=== PATIENT | male | born 1950 | race Caucasian/White ===

== ENCOUNTER → 2017-01-01 | Outpatient (CLI) | payer MEDICARE, OTHER ==
[~2017-01-01] MED LIST: ALBUAER3 INH; ASPI81CH37 CHEW; CARV12.5 PO; CLON0.5T PO; CLOP75TA PO; ERYTOIN10 EACH EYE; FENO2.5C PO; LISI-519 PO; NITR0.4S SL; NUVI150T2 PO; ROSU10 PO; SERT-129 PO; SYMB80AE INH; TEMA30CA PO
[2017-01-01 13:27] LABS: AUTOMATED NEUTROPHIL # 3.4 TH/MM3 (1.8-7.7); BASOPHIL % 0.7 % (0.0-2.0); EOSINOPHIL # 0.2 TH/MM3 (0-0.4); EOSINOPHIL % 3.9 % (0.0-4.0); HEMO FLAGS DIFF FINAL; LYMPH % 26.3 % (9.0-44.0); LYMPHOCYTE # 1.5 TH/MM3 (1.0-4.8); MEAN CELL VOLUME 91.1 FL (80.0-100.0); MEAN CORPUSCULAR HEMOGLOBIN 30.9 PG (27.0-34.0); MEAN CORPUSCULAR HGB CONC 33.9 % (32.0-36.0); MONO % 8.6 % (0.0-8.0); NEUT % 60.5 % (16.0-70.0); PLATELET COUNT 228 TH/MM3 (150-450); RED BLOOD COUNT 4.61 MIL/MM3 (4.50-5.90); RED CELL DISTRIBUTION WIDTH 14.1 % (11.6-17.2); WHITE BLOOD COUNT 5.6 TH/MM3 (4.0-11.0)
[2017-01-01 13:30] LABS: ALT (GPT) 32 U/L (12-78); ANION GAP 8 MEQ/L (5-15); BLOOD UREA NITROGEN 22 MG/DL (7-18); CHLORIDE 108 MEQ/L (98-107); GLOMERULAR FILTRATION RATE 64 ML/MIN (>89); GLUCOSE,FASTING 87 MG/DL (74-99); POTASSIUM 4.9 MEQ/L (3.5-5.1); SODIUM (NA) 146 MEQ/L (136-145)
[2017-01-01 13:43] LABS: ALKALINE PHOSPHATASE 42 U/L (45-117); AST (GOT) 31 U/L (15-37); HDL CHOLESTEROL 56.8 MG/DL (40.0-60.0); LDL CHOLESTEROL 113 MG/DL (0-99); TOTAL BILIRUBIN ADULT 0.4 MG/DL (0.2-1.0)
[2017-01-01 17:09] LABS: HEMOGLOBIN A1a 1.4 %; HEMOGLOBIN A1b 1.4 %; HEMOGLOBIN Ao 84.8 %; HEMOGLOBIN LA1C 2.1 %; HEMOGLOBIN P3 4.1 %
== END ==
LOC: PLAB 09:26
PROVIDERS: ATTEND Family Medicine
DX: R73.01 Impaired fasting glucose (principal); R53.83 Other fatigue; E78.2 Mixed hyperlipidemia; Z12.5 Encounter for screening for malignant neoplasm of prostate
CPT/HCPCS: 36415; 80053; 80061; 83036; 84443; 85025; G0103

== ENCOUNTER → 2017-09-14 | Day surgery (SDC) | payer MEDICARE, OTHER ==
[~2017-09-14] MED LIST changes: -ASPI81CH37 CHEW; +ASPI81CH6 CHEW; +BUPIVACAINE HCL PF 0.25% 30 ML VIAL ONE; +KETOROLAC TROMETHAMINE 30 MG/ML (IVP) VIAL IV PUSH ONE; +LACTATED RINGER'S 1000 ML INJ 1,000 ML ONE; +MIDAZOLAM HCL 2 MG/2 ML VIAL ONE; +ONDANSETRON HCL 4 MG/2 ML VIAL IV PUSH ONE; +PROPOFOL 100 MG/10 ML INJ IV ONE; +ceFAZolin 2 GM PREMIX 50 ML ONE
--- NOTE | 2017-09-14 18:39 | MP ---
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 PROCEDURES PERFORMED First MPJ implant arthroplasty. SPECIMEN None ESTIMATED BLOOD LOSS Less than 30 mL COMPLICATIONS None ANESTHESIA General with local 0.25% Marcaine plain IMPLANTABLES [employer] Singh flex 4S hinged toe implant with no grommets 4S TOURNIQUET TIME 60 minutes at a setting of 215 mmHg PLAN OF ACTIVITY PACU then DC home once stable per same-day surgery criteria JUSTIFICATIONS FOR PROCEDURE A pleasant 67-year-old male with worsening pain crepitus of the first MPJ resistant to healing and long-term relief with cortisone injections. We devised a plan to move forward with implant to allow range of motion and decreased pain with range of motion. PROCEDURE IN DETAIL Under mild sedation, the patient was brought into the operating room, placed on the operative table in the supine position. Following the induction of general anesthesia, local anesthesia was obtained about the patient's left forefoot utilizing standard block fashion. The patient's left foot was then scrubbed, prepped and draped in the usual aseptic fashion. The foot was elevated, exsanguinated and the previously placed mid calf tourniquet was inflated to 215 mmHg. An incision was made over the dorsal aspect of the first MPJ. This was slight medial to the extensor hallucis longus tendon. Sharp and blunt dissection was carried down to the level of the capsule. A linear capsular incision was performed. There was noted to be dorsal osteophytes with obvious arthritic findings at near 70% of the first MPJ with osteochondral lesion within the first MPJ head. Dorsal osteophyte of the base of the proximal phalanx and the head of the first MPJ was transected utilizing power instrumentation. The wound was then flushed with copious amounts of normal saline. Utilizing a bur preparing for the stem implant of the Singh implant, this was centered at the level of the first metatarsal head and at the base of the proximal phalanx. The wound was then flushed with copious amounts of normal saline. Curette was used to remove the intramedullary contents and bone. Utilizing the appropriate broach, the intramedullary contents of the proximal phalanx and the first metatarsal was prepared for implantation of the implant. The trial size implant 4S was utilized. It was brought through range of motion. There was no dislocation. There was noted to be much improved dorsiflexion and plantar flexion. It appeared to be excellent alignment on radiograph. The wound was then flushed with copious amounts of normal saline and the permanent implant 4S size was then implanted without grommets. The capsule was then repaired utilizing Vicryl, deep dermis was closed utilizing Monocryl. Skin was closed utilizing nylon. Upon relieving the tourniquet, there was a prompt hyperemic response to all digits without any delayed capillary fill time. Before final bandage was placed, fluoroscopy was used to visualize the range of motion of the implant. It was then tacked rectus minimal hallux and valgus, excellent dorsiflexion, plantar flexion stable implant without any dislocation. Upon relieving the tourniquet, there was a prompt hyperemic response to all digits. A bulky bandage placed. The patient transferred from OR to PACU with all vital signs stable. He is heel transfer weight bear to tolerance. He will ice, elevate. I will see the patient within 3-5 days. KARYN Pascal/ /4:49 PM /6:31 PM MTDAntonieta
== END | disposition home or self-care (01) ==
LOC: ESDC 12:40
PROVIDERS: ATTEND Podiatrist Foot & Ankle Surgery
DX: M19.072 Primary osteoarthritis, left ankle and foot (principal); M20.5X2 Other deformities of toe(s) (acquired), left foot
CPT/HCPCS: 01480; 28291; 73620; 76000; C1713; J0690; J1885; J2250; J2405; J3010; J7120

== ENCOUNTER → 2018-01-19 | Outpatient (CLI) | payer MEDICARE, OTHER ==
[~2018-01-19] MED LIST changes: -BUPIVACAINE HCL PF 0.25% 30 ML VIAL ONE; -KETOROLAC TROMETHAMINE 30 MG/ML (IVP) VIAL IV PUSH ONE; -LACTATED RINGER'S 1000 ML INJ 1,000 ML ONE; -MIDAZOLAM HCL 2 MG/2 ML VIAL ONE; -ONDANSETRON HCL 4 MG/2 ML VIAL IV PUSH ONE; -PROPOFOL 100 MG/10 ML INJ IV ONE; -ceFAZolin 2 GM PREMIX 50 ML ONE
[2018-01-19 10:30] LABS: AUTOMATED NEUTROPHIL # 3.9 TH/MM3 (1.8-7.7); BASOPHIL # 0.1 TH/MM3 (0-0.2); BASOPHIL % 1.1 % (0.0-2.0); EOSINOPHIL # 0.4 TH/MM3 (0-0.4); EOSINOPHIL % 5.7 % (0.0-4.0); HEMATOCRIT 42.8 % (39.0-51.0); HEMOGLOBIN 14.5 GM/DL (13.0-17.0); LYMPH % 23.4 % (9.0-44.0); LYMPHOCYTE # 1.5 TH/MM3 (1.0-4.8); MEAN CELL VOLUME 89.4 FL (80.0-100.0); MEAN CORPUSCULAR HEMOGLOBIN 30.3 PG (27.0-34.0); MEAN CORPUSCULAR HGB CONC 33.9 % (32.0-36.0); MEAN PLATELET VOLUME 7.7 FL (7.0-11.0); MONOCYTE # 0.6 TH/MM3 (0-0.9); NEUT % 60.8 % (16.0-70.0); PLATELET COUNT 245 TH/MM3 (150-450); RED BLOOD COUNT 4.79 MIL/MM3 (4.50-5.90); RED CELL DISTRIBUTION WIDTH 14.3 % (11.6-17.2); WHITE BLOOD COUNT 6.4 TH/MM3 (4.0-11.0)
[2018-01-19 10:51] LABS: ALBUMIN 3.8 GM/DL (3.4-5.0); AST (GOT) 20 U/L (15-37); BICARBONATE 24.2 MEQ/L (21.0-32.0); BLOOD UREA NITROGEN 22 MG/DL (7-18); CALCIUM 9.1 MG/DL (8.5-10.1); CHLORIDE 107 MEQ/L (98-107); CHOLESTEROL 253 MG/DL (120-200); CREATININE 1.13 MG/DL (0.60-1.30); GLOMERULAR FILTRATION RATE 65 ML/MIN (>89); GLUCOSE,FASTING 96 MG/DL (74-99); SODIUM (NA) 141 MEQ/L (136-145); TRIGLYCERIDES 163 MG/DL (42-150)
[2018-01-19 11:02] LABS: ALKALINE PHOSPHATASE 50 U/L (45-117); ALT (GPT) 20 U/L (12-78); CHOLESTEROL/ HDL RATIO 6.37 RATIO; HDL CHOLESTEROL 39.7 MG/DL (40.0-60.0); LDL CHOLESTEROL 181 MG/DL (0-99); TOTAL BILIRUBIN ADULT 0.5 MG/DL (0.2-1.0); TOTAL PROTEIN 7.3 GM/DL (6.4-8.2)
[2018-01-19 18:20] LABS: HEMOGLOBIN A1C 5.6 % (4.3-6.0)
== END ==
LOC: PLAB 08:38
PROVIDERS: ATTEND Family Medicine
DX: E78.5 Hyperlipidemia, unspecified (principal); Z87.898 Personal history of other specified conditions; Z12.5 Encounter for screening for malignant neoplasm of prostate
CPT/HCPCS: 36415; 80053; 80061; 83036; 84443; 85025; G0103